=== PATIENT | female | born 1995 | race Caucasian/White ===

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

== ENCOUNTER 2017-04-24 23:34 | Outpatient (CLI) | payer MEDICAID ==
[2017-06-21 07:42] VITALS: BMI 25.8
== END 2017-04-25 01:39 ==
LOC: D.LDO 23:34 → D.LD 23:41 → D.LDO 23:41 → D.LD 23:41 → D.LDO 04-25 01:39
DX: O26.893 Other specified pregnancy related conditions, third trimester (principal); Z3A.31 31 weeks gestation of pregnancy; R07.81 Pleurodynia

== ENCOUNTER → 2017-05-13 13:36 | Outpatient (CLI) | payer MEDICAID ==
[~2017-05-13 13:36] MED LIST: IBUPROFEN800 MG PO
[2017-05-13 15:41] LABS: APPEARANCE CLEAR (CLEAR); COLOR YELLOW (YELLOW)
[2017-05-13 15:42] LABS: BACTERIA MODERATE /hpf (NONE SEEN); BILIRUBIN NEGATIVE (NEGATIVE); EPITHELIAL CELLS 0-5 /hpf (0-5); GLUCOSE NEGATIVE (NEGATIVE); KETONE NEGATIVE (NEGATIVE); NITRITE NEGATIVE (NEGATIVE); PROTEIN NEGATIVE (NEGATIVE); RED CELLS - URINE 0-5 /hpf (0-5); UROBILINOGEN NORMAL (NORMAL); WHITE CELLS - URINE 0-5 /hpf (0-5)
[2017-06-21 07:42] VITALS: BMI 25.8
== END | disposition home or self-care (01) ==
LOC: D.LDO 13:36
PROVIDERS: Obstetrics & Gynecology
DX: O26.893 Other specified pregnancy related conditions, third trimester (principal); Z3A.34 34 weeks gestation of pregnancy; R10.31 Right lower quadrant pain

== ENCOUNTER 2017-05-26 22:47 | Outpatient (CLI) | payer MEDICAID ==
[2017-05-26 23:34] LABS: APPEARANCE CLEAR (CLEAR); BILIRUBIN NEGATIVE (NEGATIVE); COLOR YELLOW (YELLOW); GLUCOSE NEGATIVE (NEGATIVE); KETONE NEGATIVE (NEGATIVE); NITRITE NEGATIVE (NEGATIVE); PROTEIN NEGATIVE (NEGATIVE); SPECIFIC GRAVITY 1.005 (1.005-1.020); UROBILINOGEN NORMAL (NORMAL)
[2017-05-26 23:35] LABS: BACTERIA MODERATE /hpf (NONE SEEN); EPITHELIAL CELLS 0-5 /hpf (0-5); RED CELLS - URINE NONE SEEN /hpf (0-5); WHITE CELLS - URINE 0-5 /hpf (0-5)
[2017-06-21 07:42] VITALS: BMI 25.8
== END 2017-05-27 00:23 | disposition home or self-care (01) ==
LOC: D.LDO 22:47 → D.LD 23:14 → D.LDO 05-27 00:23
PROVIDERS: Obstetrics & Gynecology
DX: O26.893 Other specified pregnancy related conditions, third trimester (principal); Z3A.36 36 weeks gestation of pregnancy; R10.30 Lower abdominal pain, unspecified; M54.5 Low back pain; R35.0 Frequency of micturition

== ENCOUNTER → 2017-06-05 13:58 | Outpatient (CLI) | payer MEDICAID ==
[2017-06-05 14:54] LABS: APPEARANCE CLEAR (CLEAR); BILIRUBIN NEGATIVE (NEGATIVE); COLOR YELLOW (YELLOW); GLUCOSE NEGATIVE (NEGATIVE); KETONE NEGATIVE (NEGATIVE); NITRITE NEGATIVE (NEGATIVE); PROTEIN NEGATIVE (NEGATIVE); UROBILINOGEN NORMAL (NORMAL)
[2017-06-05 14:56] LABS: BACTERIA MODERATE /hpf (NONE SEEN); EPITHELIAL CELLS 0-5 /hpf (0-5)
[2017-06-21 07:42] VITALS: BMI 25.8
== END | disposition home or self-care (01) ==
LOC: D.LDO 13:58
PROVIDERS: Obstetrics & Gynecology
DX: O26.893 Other specified pregnancy related conditions, third trimester (principal); Z3A.00 Weeks of gestation of pregnancy not specified; M54.5 Low back pain; M79.604 Pain in right leg

== ENCOUNTER → 2017-06-11 15:52 | Outpatient (CLI) | payer MEDICAID ==
[2017-06-11 16:57] LABS: APPEARANCE HAZY (CLEAR); BILIRUBIN NEGATIVE (NEGATIVE); COLOR YELLOW (YELLOW); GLUCOSE NEGATIVE (NEGATIVE); KETONE NEGATIVE (NEGATIVE); NITRITE POSITIVE (NEGATIVE); PROTEIN NEGATIVE (NEGATIVE); RED CELLS - URINE OCC /hpf (0-5); UROBILINOGEN NORMAL (NORMAL)
[2017-06-11 16:58] LABS: BACTERIA MODERATE /hpf (NONE SEEN); EPITHELIAL CELLS 0-5 /hpf (0-5); MUCUS <1+ /lpf (NONE SEEN)
[2017-06-21 07:42] VITALS: BMI 25.8
== END | disposition home or self-care (01) ==
LOC: D.LDO 15:52
PROVIDERS: Obstetrics & Gynecology
DX: O26.893 Other specified pregnancy related conditions, third trimester (principal); Z3A.38 38 weeks gestation of pregnancy

== ENCOUNTER → 2017-06-19 16:18 | Outpatient (CLI) | payer MEDICAID ==
[2017-06-19 17:11] LABS: APPEARANCE CLEAR (CLEAR); BACTERIA FEW /hpf (NONE SEEN); BILIRUBIN NEGATIVE (NEGATIVE); COLOR YELLOW (YELLOW); EPITHELIAL CELLS 0-5 /hpf (0-5); GLUCOSE NEGATIVE (NEGATIVE); KETONE SMALL mg/dL (NEGATIVE); NITRITE NEGATIVE (NEGATIVE); PROTEIN NEGATIVE (NEGATIVE); RED CELLS - URINE OCC /hpf (0-5); UROBILINOGEN NORMAL (NORMAL); WHITE CELLS - URINE 0-5 /hpf (0-5)
[2017-06-21 07:42] VITALS: BMI 25.8
== END | disposition home or self-care (01) ==
LOC: D.LDO 16:18
PROVIDERS: Obstetrics & Gynecology
DX: O26.893 Other specified pregnancy related conditions, third trimester (principal); Z3A.39 39 weeks gestation of pregnancy

== ENCOUNTER 2017-06-21 06:59 | Inpatient (IN) | payer MEDICAID ==
[~2017-06-21] VITALS: Ht 165.1 cm; Wt 70.5 kg
[2017-06-21 07:42] VITALS: BP 137/83; Ht 165.1 cm; Wt 70.5 kg
[2017-06-21 07:51] LABS: HEMATOCRIT 34.4 % (36.0-48.0); HEMOGLOBIN 11.7 g/dL (12-16); MCH 28.7 pg (26.0-34.0); MCV 84.3 fL (80.0-100.0); MEAN PLATELET VOLUME 10.9 fL (7.4-10.4); RBC 4.08 10x6/uL (4.00-5.40); RDW 13.1 % (11.5-14.5); WBC 11.4 10x3/uL (4.8-10.8)
[2017-06-21 08:27] LABS: BASOPHILS 0.1 % (0-2); EOSINOPHILS 1.1 % (0-7); HEMATOCRIT 34.1 % (36.0-48.0); HEMOGLOBIN 11.6 g/dL (12-16); LYMPHOCYTES 12.8 % (15-50); MCH 28.7 pg (26.0-34.0); MCV 84.4 fL (80.0-100.0); MEAN PLATELET VOLUME 10.9 fL (7.4-10.4); MONOCYTES 9.3 % (2-11); NEUTROPHILS 75.7 % (40-80); PLATELET COUNT 156 10x3/uL (130-400); RBC 4.04 10x6/uL (4.00-5.40); RDW 13.1 % (11.5-14.5); WBC 12.2 10x3/uL (4.8-10.8)
[2017-06-21 08:50] LABS: ALBUMIN 2.4 g/dL (3.4-5.0); ALKALINE PHOSPHATASE 135 U/L (46-116); ALT (SGPT) 14 U/L (10-68); CALC OSMOLALITY 267 mosm/kg (275-300); CALCIUM 8.8 mg/dL (8.5-10.1); CARBON DIOXIDE 24.7 mmol/L (21.0-32.0); CHLORIDE - SERUM 101 mmol/L (98-107); CREATININE - SERUM 0.6 mg/dL (0.6-1.3); GLUCOSE 88 mg/dL (74-106); POTASSIUM - SERUM 3.6 mmol/L (3.5-5.1); PROTEIN - SERUM 6.6 g/dL (6.4-8.2); SODIUM 135 mmol/L (136-145); UREA NITROGEN 10 mg/dL (7-18); URIC ACID 3.9 mg/dL (2.6-7.2); eGFR NON AFRICAN AMERICAN > 90 mL/min (90-120)
[2017-06-21 08:51] LABS: BILIRUBIN - DIRECT 0.03 mg/dL (0.00-0.30); BILIRUBIN - INDIRECT 0.03 mg/dL (0.00-1.00); BILIRUBIN - TOTAL 0.06 mg/dL (0.2-1.3)
[2017-06-21 10:30] LABS: APPEARANCE CLEAR (CLEAR); BILIRUBIN NEGATIVE (NEGATIVE); COLOR YELLOW (YELLOW); GLUCOSE NEGATIVE (NEGATIVE); KETONE NEGATIVE (NEGATIVE); NITRITE NEGATIVE (NEGATIVE); PROTEIN NEGATIVE (NEGATIVE); UROBILINOGEN NORMAL (NORMAL)
[2017-06-21 18:06] VITALS: BP 135/82
[2017-06-21 19:02] VITALS: BP 149/83
--- NOTE | 2017-06-21 19:02 | NUR ---
LYING IN BED ON BACK WITH HOB AT 45 DEGREES HOLDING . VISITORS IN ROOM. HANDS TO VISITOR. FUNDUS FIRM U/U AND DISPLACED TO RT. INFORMED PT. THAT SHE NEEDED TO GET UP AND VOID. PT. STATES THAT SHE DESIRES TO WAIT UNTIL 1929 AT WHICH TIME HER VISITORS WILL LEAVE. FAROOQ WAGGONER SCANT TO MOD. STATES SHE HAS MINIMAL BACKPAIN AND HER "BOTTOM HURTS A LITTLE" AND PT. RATES PAIN A 4 OF 10 ON PAIN SCALE. IV SALINE LOCK IN LT WRIST AREA. BREATH SOUNDS CLEAR. INFORMED PT. THIS NURSE WOULD RETURN AT 1929 AND ASSIST HER TO BATHROOM AND EXPLAIN HOW TO USE HER DERMOPLAST AND TUCKS. PT. STATES UNDERSTANDING.
--- NOTE | 2017-06-21 19:30 | NUR ---
PT. UP TO BATHROOM WITH MINIMAL ASSISTANCE. VOIDING PRIOR TO SITTING ON COMMODE. VOIDED ON COMMODE. GAIT WAS STEADY AND NO COMPLAINT OF DIZZINESS. FOB IN ROOM AND WANTING TO HELP PT. PT. INSTRUCTED ON USE OF DERMAPLAST AND TUCKS PADS. EXPLAINED SELF ISIDRA CARE WITH BETADINE AND WATER AND PT. USE ISIDRA BOTTLE TO SPRAY PERINEAL AREA WHILE VOIDING DUE TO C/O BURNING. ASSISTED WITH APPLYING DERMOPLAST AND TUCKS. PT. STATES UNDERSTANDING TO ALL INSTRUCTIONS. ENCOURAGED PT. NOT TO DELAY VOIDING IF SHE FEELS URGE AND SHE MAY FEEL SHE IS GOING MORE OFTEN DUE TO LOOSING EXTRA FLUID AFTER DELIVERY. BACK TO BED WITHOUT ASSISTANCE. PT. REPORTS BACKPAIN AND PERINEAL AND RECTAL SORENESS. ASSISTED PT. TO POSITION ONTO LT SIDE AND ENCOURAGED PT. TO MOVE ABOUT IN BED AND NOT TO JUST LIE ON BACK. PT. STATES UNDERSTANDING. DISCUSSED MEDICATION OPTIONS FOR PAIN WITH PT. PT. STATES SHE IS NOT HURTING ENOUGH FOR PAIN MED AND DISCUSSED MOTRIN WITH PT. AND PT. AGREEABLE.
[2017-06-21 19:40] VITALS: BP 132/84
--- NOTE | 2017-06-21 19:40 | NUR ---
FUNDUS FIRM U/2 AND MIDLINE. LOCHIA RUBRA SCANT TO MOD NOTED WHEN PT. REMOVED PT. PRIOR TO VOIDING. BREATH SOUNDS CLEAR AND BOWEL SOUNDS AUDIBLE. PT. DECLINES ICE CAP TO PERINEAL AREA STATING THAT SHE DID NOT FEEL THAT IT HELPED AND HER DISCOMFORT IS SORENESS.
--- NOTE | 2017-06-21 19:42 | NUR ---
PT. DOES NOT C/O OF HEADACHE OR ANY VISUAL DISTURBANCES. NO PITTING EDEMA OF LOWER EXTREMITIES NOTED OR HANDS OR FACIAL EDEMA.
--- NOTE | 2017-06-21 19:49 | NUR ---
MOTRIN GIVEN ORDERED. PT. CHEERFUL AND TALKING ON PHONE. VISITOR IN ROOM HOLDING . ENCOURAGED PT. TO TRY AND REST PRIOR TO TIME OF 'S NEXT FEEDING.
--- NOTE | 2017-06-21 20:35 | NUR ---
PT. LYING IN LT TILT. STATES SHE FEELS MUCH MORE COMFORTABLE AND RATES DISCOMFORT A 2 OF 10 ON PAIN SCALE. STATES SHE IS TIRED AND HER COMPANY IS GETTING READY TO LEAVE. SIDE RAILS UP X 2 AND CALL LIGHT WITHIN PT. REACH.
--- NOTE | 2017-06-21 21:20 | NUR ---
PT. STATES THAT SHE NEEDS ASSISTANCE WITH . INFORMED PT. THAT NURSERY STAFF WOULD BE INFORMED. PT. RELATES THAT SHE HAD GOTTEN UP TO BATHROOM AGAIN AND DID WELL AND USED THE DERMOPLAST AND TUCKS DIRECTED. STATES AMBULATION WAS MUCH EASIER AND SHE IS FEELING BETTER. ENCOURAGED TO CALL THIS NURSE WITH ANY NEEDS. PT. ASKED ABOUT SHOWERING STATING THAT IT WOULD BE LATER. DISCUSSED WITH PT. ABOUT TAKING TEPDI SHOWER THE FIRST TIME AND NOT HOT SHOWER AND EXPLAINED REASONING. PT. STATES UNDERSTANDING. LINENS PROVIDED TO FOB WHICH IS PLANNING TO SLEEP IN RECLINER/BED.
[2017-06-21 22:40] VITALS: BP 121/68
--- NOTE | 2017-06-21 22:40 | NUR ---
LYING ON BACK WITH HOB AT 45 DEGREES. HAS SKIN TO SKIN WITH HER. PT. CHEERFUL AND STATES IT HURTS HER TAILBONE TO LIE ON BACK TOO LONG. ENCOURAGED TO CHANGE TO SIDE LYING. PT. REQUESTED THAT INFANT BE PLACED IN OPEN CRIB AT BEDSIDE. APPLEJUICE AND WATER SERVED TO PT. PT. INQUIRED IF THERE WAS ANYTHING HER FOB COULD EAT THAT HE HAD NOT EATEN IN SOME TIME. INFORMED A SANDWICH TRAY COULD BE PROVIDED AND SAME DONE. INQUIRED IF PT. WANTED INFANT RETURNED TO NBN UNTIL NEXT FEEDING AND PT. AGREEABLE. ENCOURAGED PT. TO TRY AND REST UNTIL INFANT RETURNS TO ROOM. STATES SHE WILL TRY.
--- NOTE | 2017-06-22 00:20 | NUR ---
NURSERY NURSE ASSISTING PT. WITH . PT. DENIES ANY NEEDS AT THIS TIME.
--- NOTE | 2017-06-22 02:05 | NUR ---
INFANT IN ROOM WITH MOTHER. CRYING AND PT. ATTEMPTING TO WRAP IN BLANKET. APPLE JUICE PROVIDED. HELPED FOB WITH SWADDLING INFANT. ENCOURAGE PT. TO KEEP WRAPPED DUE TO ROOM TEMP. COLD. STATES UNDERSTANDING. SIDE RAILS UP X 2. CALL LIGHT WITHIN REACH. PT. CHEERFUL.
--- NOTE | 2017-06-22 04:51 | NUR ---
PT. AWAKENED FOR MEDICATION ADMINISTRATION. NBN NURSE ALSO IN ROOM DUE TO TIME FOR TO NURSE. PT. RATES PAIN 5 OF 10 DUE TO PERINEAL DISCOMFORT WITH MOVING IN BED. CYTOTEC ALSO ADMINISTERED PER ORDER. PT. INFORMED OF REASON BOTH MEDS GIVEN. CYTOTEC PER ORDER AND NORCO FOR PAIN. PT. STATES UNDERSTANDING TO ALL. PREPARING FOR .
--- NOTE | 2017-06-22 05:15 | NUR ---
PT. UP TO SHOWER. RINGS CALL LIGHT TO HAVE SOMETHING PLACED OVER IV SITE PRIOR TO SHOWER. GLOVE SECURED OVER SIGHT. PT. REPORTS THAT HER CHEST HURTS WHEN SHE TALKS. INQUIRED IF SHE MEANT HER THROAT AND PT. STATES "NO MY CHEST". ASKED IF CHEST WAS HURTING IF SHE WAS NOT TALKING AND PT. RESPONDS "NO". PT. COMPLAINING SHE HAS SOME SINUE DRAINAGE WELL. INQUIRED IF PT. STILL WANTED TO GET INTO SHOWER AND SHE RESPONDS THAT SHE DOES. FOB AWAKE AND ON SOFA. PT. AWARE OF CALL LIGHT IN BATHROOM.
--- NOTE | 2017-06-22 05:16 | NUR ---
PT. RATES PAIN A 4 OF 10 ON PAIN SCALE. DENIES DIZZINESS.
--- NOTE | 2017-06-22 05:38 | NUR ---
PT. OUT OF SHOWER AND REQUESTING ADDITIONAL ISIDRA PANTIES. SAME GIVEN. INQUIRED IF PT. STILL FEELING CHEST DISCOMFORT. PT. STATES IT IS REALLY JUST A TIGHTNESS. SOUNDS CONGESTED WHEN SHE TALKS WHICH SHE DID EARLIER IN SHIFT. STATES IT IS "SINUS". SUGGESTED THAT SHE ASK MD WHEN HE ROUNDS WHAT SHE COULD TAKE FOR THE CONGESTION. PT. STATES THAT SHE WILL. DENIES NEED FOR FURTHER ASSISTANCE. ENCOURAGED TO AMBULATE IN ROOM TODAY AND SHE STATES THAT SHE WILL.
--- NOTE | 2017-06-22 06:28 | NUR ---
PT REPORTS THAT SHE FEELS "FINE". RATES PAIN A 2 OF 10 ON PAIN SCALE. HAVING DIFFICULTY GETTING INFANT TO LATCH. NBN NURSE NOTIFIED AND TO ROOM TO ASSIST.
--- NOTE | 2017-06-22 07:35 | NUR ---
AROUSED FROM SLEEP. IN ARMS ALSO SLEEPING. INSTRUCTED ON IMPORTANCE OF NOT SLEEPING WITH IN ARMS. VERBALIZED UNDERSTANDING, STATES "I TRIED NOT TO FALL ASLEEP" INSTRUCTED SHE NEEDS REST AND IT IS OK IF INFANT IS IN CRIB. ALSO SAYS SHE NEEDS TO FEED SINCE IT "HAS BEEN A LONG TIME SINCE SHE HAS EATEN". SHIFT ASSESSMENT COMPLETED. WNL. DENIES PAIN. ASSISTED WITH . NOT LATCHING AFTER ATTEMPTING DIFFERENT HOLD. WILL HAVE NURSERY RN ASSIST. SIDE RAILS UP X 2, CALL LIGHT IN REACH. SAYS SHE HAS HAD FLU VACCINE AND DECLINES TDAP SAYING SHE RECEIVED "PRIOR TO BASKETBALL". REGULAR DIET AT BEDSIDE. SAYS SHE SHOWERED EARLY THIS MORNING. NO ADDITIONAL REQUESTS.
[2017-06-22 07:48] VITALS: BP 125/80
[2017-06-22 08:06] VITALS: BP 115/61
--- NOTE | 2017-06-22 09:14 | NUR ---
AMBULATING IN ROOM. C/O SORENESS OF CHEST. EXPLAINED USE OF INTERCOSTAL MUSCLES DURING PUSHING PHASE. STATES "THAT'S IT. THAT'S WHAT IT FEEL LIKE SORE MUSCLES". DESIRES TO AMBULATE. INSTRUCTED ON AREAS SHE CAN WALK WITH . FOB IN ROOM. DENIES NEEDING ANYTHING ELSE. DR GLYNN CALLED EARLIER. WILL BE IN TO SEE PT TODAY AND ANTICIPATE DC HOME.
--- NOTE | 2017-06-22 10:32 | NUR ---
UP IN BATHROOM. NO REQUESTS. VISITOR IN ROOM WITH . TO CALL IF ANYTHING IS NEEDED.
--- NOTE | 2017-06-22 11:58 | OP ---
PATIENT NAME: LARRY KERR MEDICAL RECORD: [id number] :97 LOCATION:[id number] ADMISSION DATE:06/21/17 SURGEON: ELICEO GUTIERREZ MD DATE OF OPERATION: 06/21/2017 PREDELIVERY DIAGNOSIS: Active labor at term. POSTDELIVERY DIAGNOSIS: Active labor at term. PROCEDURE: Vaginal delivery. ATTENDING: Eliceo Gutierrez MD ANESTHETIC: Continuous lumbar epidural. FINDINGS: Viable female with shoulder dystocia alleviated with Hunter and suprapubic from patient's right directed to the left. A second-degree laceration with repair. Apgars were 9 and 9 and the weight is still pending at the time of this dictation. Repair effected with 3-0 chromic and 4-0 chromic. Some uterine atony alleviated with Methergine. The patient will receive p.o. misoprostol . EBL: 375cc-400cc. DISPOSITION: Mother and recovered in the room. TRANSINT:[id number] Voice Confirmation ID: [id number] DOCUMENT ID: [id number] ELICEO GUTIERREZ MD at 1158 CC: [id number] DICTATION DATE: 06/21/17 1450 MARKETING AMBASSADOR: 06/22/17 0110 ADM IN [facility] [address] [place] [address]
--- NOTE | 2017-06-22 15:01 | NUR ---
AMBULATING IN ROOM. DENIES NEEDING ANYTHING AT THIS TIME. STATES "I'M TRYING TO STAY OUT OF THE BED." FOB AND INFANT IN ROOM. TO CALL IF ANYTHING IS NEEDED. STATES" I'M A LOT BETTER. SHE IS LATCHING NOW." ANTICIPATE DC HOME TOMORROW.
[2017-06-22 16:48] VITALS: BP 130/75
--- NOTE | 2017-06-22 16:49 | NUR ---
SITTING UP IN BED HOLDING . DENIES NEEDING ANYTHING. PLANS TO BREASTFEED IN ABOUT 10 MINS. REMINDED TO DOCUMENT TIMES ON EACH BREAST. HAS CLIP BOARD AND PEN AT BEDSIDE. VERBALIZED UNDERSTANDING. SIDE RAILS UP X 2, CALL LIGHT IN REACH. FOB JUST LEFT ROOM. TO CALL IF ANYTHING IS NEEDED.
--- NOTE | 2017-06-22 17:40 | NUR ---
RN TO BEDSIDE. PT WITH INFANTS IN ARMS. PT STATES THAT SHE ATTEMPTED TO BREAST FEED AGAIN BUT SHE FELL ASLEEP. INSTRUCTED ON WAYS TO ROUSE USING BABY WIPE AND DIAPER CHANGE, AND UNSWADDLING. PT ATTEMPTED ALL OF THESE, REMAINS ASLEEP. RN ASSISTED WITH PLACING INFANT SKIN TO SKIN PER PT REQUEST. C/O ABD CRAMPING, 12/28. DISCUSSED PAIN MEDICATION INTERVENTION, REQUESTS PAIN MEDICATION AT THIS TIME. S/O AT BEDSIDE, SUPPORTIVE AND ATTENTIVE TO PT NEEDS. BED IN LOW POSITION WITH UPPER SIDE RAILS RAISED X2. CL AND PHONE WITHIN REACH. WILL CONT TO MONITOR AND ASSIST PRN.
--- NOTE | 2017-06-22 18:00 | NUR ---
NORCO 5 MG GIVEN PO FOR C/0 6/10 CRAMPING. REMINDED NOT TO SLEEP WITH IN ARMS. CURRENTLY HOLDING . FOB AND VISITOR IN ROOM. SIDE RAILS UP X 2, CALL LIGHT IN REACH. NO ADDITIONAL REQUESTS.
[2017-06-22 20:00] VITALS: BP 123/85
--- NOTE | 2017-06-22 20:00 | NUR ---
REC'D PT AMBULATING IN ROOM. 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 VS TAKEN AND WNL. RESP EVEN AND UNLABORED. LUNGS CLEAR BILATERALLY. NAILBEDS PINK WITH INSTANT CAP. REFILL. FUNDUS FIRM U/2. BOWEL SOUNDS PRESENT X4. PT REPORTS VOIDING WITHOUT DIFFICULTY. SALINE LOC REMOVED AT THIS TIME. PT DENIES NEEDS. S/O PRESENT IN ROOM HOLDING . CALEB ADAMS
--- NOTE | 2017-06-22 21:15 | NUR ---
CALLED DR. GLYNN TO CLARIFY CYTOTEC ORDER. TELEPHONE ORDER REC'D TO DC CYTOTEC.
--- NOTE | 2017-06-22 21:18 | NUR ---
PT MEDICATED WITH IBUPROFEN 600MG AT THIS TIME. PT RATES PAIN 2/10. DENIES FURTHER NEEDS. CALEB ADAMS
--- NOTE | 2017-06-23 00:50 | NUR ---
BROUGHT BABY BACK TO THE NURSERY IN OPEN CRIB PER MOM's REQUEST.
[2017-06-23 03:40] VITALS: BP 119/76
--- NOTE | 2017-06-23 03:40 | NUR ---
BROUGHT BABY TO MOM FOR FEEDINGS. V/S STABLE. ASSISTED WITH UNTIL BABY LATCHED-ON. GOOD INFANT-MATERNAL BONDING. FOB IN THE ROOM SLEEPING.
--- NOTE | 2017-06-23 04:25 | NUR ---
DR. GLYNN HERE FOR AM ROUNDS
--- NOTE | 2017-06-23 06:00 | NUR ---
SLEPT FAIRLY WELL DURING THE NIGHT. AWAKEN FOR INFANT's FEEDINGS. CONTINUING PLAN OF CARE. ANTICIPATES DISCHARGE TODAY.
--- NOTE | 2017-06-23 07:00 | NUR ---
REPORT GIVEN TO AM SHIFT NURSES.
[2017-06-23 07:44] VITALS: BP 123/76
--- NOTE | 2017-06-23 07:48 | NUR ---
ASSESSMENT DONE. SITTING UP IN BED EATING BREAFAST. IN ROOM.DENIES NEEDS.
[2017-06-23] MEDS ORDERED: IBUPROFEN800 MG PO (08:11)
--- NOTE | 2017-06-23 08:45 | NUR ---
Shanita Valdez 06/23/17 S: Shanita states," is going fine. I have been topping her off with formula because she acts like she is hungry. She fed not too long ago about 8 minutes. My plan is to do both and bottle feeding. With [facility] I plan on just getting the formula, because I heard they give the good kind. I'm going to buy a pump later today. When I get home, I'm going to try then offer formula, if she will suck the bottle, I'm going to put her back to the breast because that means she still wants to eat. Then if she won't take the breast, I'm going to give her formula. It does hurt some times when I latch her. I was giving some lanolin cream to use, the first time I wiped it off before I feed because I wasn't sure if it could stay on. I'm going to make my WIC appointment at a later time. Thanked CLC. " O: Patient walking around in room, infant in nursery. Praised for and asked how was going and if she is experiencing any pain with nursing? does take time and patience in the beginning, both mother and infant are learning together how to breastfeed. When feeding , make sure baby is turned completed tummy to tummy, nose opposite of nipple, and allow to self-latch. Baby shouldn't be latched only on nipple. Patient gave CLC permission to look at her nipples; the left nipple does have a small scab on the right lower corner, possibly due to being latched incorrect. Explained to verify is latched correctly for every feeding. You may apply lanolin to the breast after every feeding; this doesn't have to be removed prior to latching . Supply and demand what takes out your body will make more of. Try placing infant to the breast when showing feeding cues. This will help your body to understand more milk is needed and your body will adjust to needs. The more is placed to the breast; your milk supply will increase to meet need. Breastfeed babies usually eat 8-12 times in 24 hours, every is different and some may want to eat more often especially during a growth spurt, this is normal. Explained feeding cues, growth spurs, diaper count to verify infant intake, position, and what to expect the first week, and asked if any other questions or concerns, patient declined at this time. A: Patient states she plans on doing both breast and bottle feeding. P: Feed infant on demand when showing feeding cues by placing to the breast for the next 24 hours. If help is needed with infant latching please contact LC (work cell number was provided). Syed Cochran, CLC
--- NOTE | 2017-06-23 10:00 | NUR ---
ambulating about in room. states has showered and is combing hair. states that she is waiting on her father to get here before she is ready for discharge.
--- NOTE | 2017-06-23 13:24 | NUR ---
discharge inst verbal and written given. prescription x1 given- ibuprofen 800mg. pt med rec given. pt health summary, and discharge packets given. pt questions answered and denies further questions.
--- NOTE | 2017-06-23 14:10 | NUR ---
PT DISCHARGED HOME. TRANSPORTED VIA W/C PER THIS RN TO AWAITING CAR TO BE DRIVEN HOME. INFANT STRAPED IN CARRIER AND TRANSPORTED OFF UNIT VIA GRANDPARENT TO CAR.
[2017-06-24 07:28] LABS: RAPID PLASMA REAGIN Non Reactive (Non Reactive)
== END 2017-06-23 14:18 | disposition home or self-care (01) | DRG 775 ==
LOC: D.LD 06:59
PROVIDERS: ADMIT Obstetrics & Gynecology
PROC: 10E0XZZ Delivery of Products of Conception, External Approach (ICD-10-PCS; principal; 2017-06-21)
PROC: 0KQM0ZZ Repair Perineum Muscle, Open Approach (ICD-10-PCS; 2017-06-21)
DX: O77.0 Labor and delivery complicated by meconium in amniotic fluid (principal); Z3A.39 39 weeks gestation of pregnancy; Z37.0 Single live birth; O66.0 Obstructed labor due to shoulder dystocia; O70.1 Second degree perineal laceration during delivery

== ENCOUNTER 2017-12-07 18:24 | Emergency (ER) | payer MEDICAID ==
[2017-06-21 07:42] VITALS: BMI 25.8
== END 2017-12-07 20:25 | disposition home or self-care (01) ==
LOC: D.ER 18:24
DX: G43.909 Migraine, unspecified, not intractable, without status migrainosus (principal); H69.90 Unspecified Eustachian tube disorder, unspecified ear; J01.90 Acute sinusitis, unspecified